=== PATIENT | male | born 1955 | race Caucasian/White ===

== ENCOUNTER 2016-11-17 06:36 | Emergency (ER) | payer OTHER, MEDICARE | END 2016-11-17 09:50 | disposition home or self-care (01) | LOC: EDBD 06:36 → ER1 06:36 | DX: J10.1 Influenza due to other identified influenza virus with other respiratory manifestations (principal); E11.9 Type 2 diabetes mellitus without complications; J44.9 Chronic obstructive pulmonary disease, unspecified; G89.29 Other chronic pain; Z87.891 Personal history of nicotine dependence | CPT/HCPCS: 71020; 87081; 87880; 94664; 99284 ==